=== PATIENT | female | born 1990 | race Caucasian/White ===

== ENCOUNTER 2021-07-22 18:33 | Emergency (ER) | payer OTHER ==
[2021-07-22 18:42] VITALS: BP 106/70; PULSE 89; TEMP 99.6; BMI 33.3
== END 2021-07-22 21:09 | disposition home or self-care (01) ==
LOC: JER 18:33
DX: J09.X2 Influenza due to identified novel influenza A virus with other respiratory manifestations (principal)
CPT/HCPCS: 0241U-QW; 87651; 99283-25

== ENCOUNTER 2023-06-30 19:56 | Emergency (ER) | payer OTHER ==
[2023-06-30 20:03] VITALS: BP 117/60; PULSE 85; RESP 16; TEMP 98.3; BMI 25.3
[2023-06-30] MEDS: IBUPROFEN 600 MG TABLET (FP) PO ONE (20:34)
[2023-06-30] MEDS ORDERED: IBUPROFEN 600 MG TABLET (FP) PO ONE (20:35)
== END 2023-06-30 21:16 | disposition home or self-care (01) ==
LOC: JERFT 19:56
DX: M25.561 Pain in right knee (principal); M22.8X1 Other disorders of patella, right knee
CPT/HCPCS: 73562-TC-RT-FY; 99283-25